=== PATIENT | female | born 1950 | race Caucasian/White ===

== ENCOUNTER 2023-12-08 09:28 | Day surgery (SDC) | payer MEDICARE, BC ==
[2023-12-08] MEDS: Sodium Chloride 0.9% 1,000 ML IV SCH (09:47)
[2023-12-08] MEDS ORDERED: Propofol 200 MG/20 ML SDV ONE (10:35)
[2023-12-08] MEDS ORDERED: fentaNYL 50 MCG/ML SDV ONE (10:35)
[2023-12-08 12:28] VITALS: BP 145/74; PULSE 73
== END 2023-12-08 12:40 | disposition home or self-care (01) ==
LOC: JP.SDS 09:28
PROVIDERS: ATTEND Surgery
DX: K22.70 Barrett's esophagus without dysplasia (principal); K22.89 Other specified disease of esophagus; T18.3XXA Foreign body in small intestine, initial encounter; I10 Essential (primary) hypertension; E78.00 Pure hypercholesterolemia, unspecified; J45.909 Unspecified asthma, uncomplicated; E66.9 Obesity, unspecified; Z79.899 Other long term (current) drug therapy; Z88.0 Allergy status to penicillin; Z91.018 Allergy to other foods; Z68.31 Body mass index [BMI] 31.0-31.9, adult
CPT/HCPCS: 00731; 43239; 88305; J2704; J3010; J7030